=== PATIENT | male | born 1945 | race Caucasian/White ===

== ENCOUNTER 2017-09-29 13:54 | Emergency (ER) | payer OTHER, MEDICARE ==
[2017-09-29] MEDS ORDERED: LIDOCAINE 2% 20 ML VIAL. IJ (15:15)
[2017-09-29] MEDS: LIDOCAINE WITH 8.4% SOD BICARB 3 ML DISP.SYRIN. INJ ×2 (16:16→16:17)
== END 2017-09-29 16:48 | disposition home or self-care (01) ==
LOC: ER 13:54
DX: S61.411A Laceration without foreign body of right hand, initial encounter (principal); E11.9 Type 2 diabetes mellitus without complications; E78.00 Pure hypercholesterolemia, unspecified; I11.9 Hypertensive heart disease without heart failure; M10.9 Gout, unspecified; W54.0XXA Bitten by dog, initial encounter; Y93.89 Activity, other specified; Y92.89 Other specified places as the place of occurrence of the external cause; Y99.8 Other external cause status
CPT/HCPCS: 12002; 99283